=== PATIENT | female | born 1980 ===

== ENCOUNTER 2019-01-09 10:32 | Emergency (ER) | payer SELFPAY ==
[2019-01-09 11:09] VITALS: TEMP 98.9
--- NOTE | 2019-01-09 11:46 | C.PDOC ---
History Of Present Illness 38 y/o female, nonsmoker, comes in complaining of cough with green sputum x1 month. Patient denies any fever, chills, SOB, nasal congestion, or other symptoms. She also complains of ear pain and throat pain since yesterday. Patient has no other associated symptoms. Time Seen by Provider: 01/09/19 11:06 Chief Complaint (Nursing): Cough, Cold, Congestion History Per: Patient History/Exam Limitations: no limitations Onset/Duration Of Symptoms: Days Current Symptoms Are (Timing): Still Present Past Medical History Reviewed: Historical Data, Nursing Documentation, Vital Signs Vital Signs: Last Vital Signs Temp 98.9 F 01/09/19 10:47 Pulse 84 01/09/19 10:47 Resp 17 01/09/19 10:47 BP 111/70 01/09/19 10:47 Pulse Ox 96 01/09/19 10:47 - Medical History PMH: No Chronic Diseases Family History: States: Unknown Family Hx - Social History Hx Alcohol Use: No Hx Substance Use: No - Immunization History Hx Tetanus Toxoid Vaccination: No Hx Influenza Vaccination: No Hx Pneumococcal Vaccination: No Review Of Systems Constitutional: Negative for: Fever, Chills ENT: Positive for: Ear Pain, Throat Pain. Negative for: Ear Discharge, Nose Congestion Cardiovascular: Negative for: Chest Pain Respiratory: Positive for: Cough, Sputum (green). Negative for: Shortness of Breath Gastrointestinal: Negative for: Nausea, Vomiting, Abdominal Pain Skin: Negative for: Rash Neurological: Negative for: Weakness, Numbness Physical Exam - Physical Exam Appears: Well, Non-toxic, No Acute Distress Skin: Warm, Dry, No Rash Head: Atraumatic, Normacephalic Eye(s): bilateral: PERRL Ear(s): Bilateral: Normal Oral Mucosa: Moist Throat: Erythema (posterior pharynx erythema) Neck: Supple Lymphatic: No Adenopathy Chest: No Tenderness Cardiovascular: Rhythm Regular Respiratory: No Rales, No Rhonchi, No Wheezing, Other (Right upper lung has few coarse breath sounds, rest is clear) Gastrointestinal/Abdominal: Bowel Sounds (normoactive bowel sounds), Soft, No Tenderness Extremity: Bilateral: Atraumatic, Normal Color And Temperature, Normal ROM Neurological/Psych: Oriented x3, Normal Speech, Normal Cognition Gait: Steady ED Course And Treatment O2 Sat by Pulse Oximetry: 96 (RA) Pulse Ox Interpretation: Normal - Other Rad CXR X-Ray: Read By Radiologist Interpretation: IMPRESSION: No active disease. Medical Decision Making Medical Decision Making: Plan: --Chest XR --POC urine --Rapid Strep 1209 neg rapid strep. wet read xray neg for infiltrate. d/c home with supportive care. Disposition Counseled Patient/Family Regarding: Studies Performed, Diagnosis, Need For Fo llowup, Rx Given - Disposition Referrals: [facility] [Outside] [facility] [Outside] Disposition: HOME/ ROUTINE Disposition Time: 12:22 Condition: GOOD Additional Instructions: [place] Tylenol o Motrin para el dolor si es necesario. Llame al servicio de [facility] lunes para obtener ayuda para hacer félix daniel de seguimiento en la clnica mdica. Regrese a R para cualquier sntoma peor, agilidad o respiracin o dificultad para respirar. Take Tylenol or Motrin for pain if needed. Call [facility] on Friday for help making a follow up appointment in the medical clinic. Return to R for any worse symptoms, sortness or breath or difficulty breathing. Instructions: Acute Bronchitis, Adult (DC) Forms: Gen Discharge Inst [employer], [employer] ([employer]) Print Language: KOREAN - Clinical Impression Clinical Impression: Bronchitis - PA / [employer]EE [employer] / Resident Statement MD/DO has reviewed & agrees with the documentation as recorded. - Scribe Statement The provider has reviewed the documentation as recorded by the Scribe Faviola Burgess All medical record entries made by the Scribe were at my direction and personally dictated by me. I have reviewed the chart and agree that the record accurately reflects my personal performance of the history, physical exam, medical decision making, and the department course for this patient. I have also personally directed, reviewed, and agree with the discharge instructions and disposition.
[2019-01-09 12:29] VITALS: BP 108/75; PULSE 78; RESP 18
--- NOTE | 2019-01-09 16:12 | RAD ---
Date of service: 01/09/2019 HISTORY: cough green sputum COMPARISON: No prior. TECHNIQUE: Chest PA and lateral views FINDINGS: LUNGS: No active pulmonary disease. PLEURA: No significant pleural effusion identified. No pneumothorax apparent. CARDIOVASCULAR: No aortic atherosclerotic calcification present. Normal cardiac size. No pulmonary vascular congestion. OSSEOUS STRUCTURES: No significant abnormalities. VISUALIZED UPPER ABDOMEN: Normal. OTHER FINDINGS: None. IMPRESSION: No active disease.
[2019-01-09 17:05] VITALS: O2SAT 96
== END 2019-01-09 12:29 | disposition home or self-care (01) ==
LOC: C.ER 10:32
DX: J40 Bronchitis, not specified as acute or chronic (principal)